=== PATIENT | female | born 1945 | race Caucasian/White ===

== ENCOUNTER 2024-12-23 13:16 | Outpatient (AMB) | payer MEDICARE, SELFPAY ==
[2024-12-23 13:46] VITALS: BP 126/64; PULSE 61; BMI 27.0
--- NOTE | 2024-12-23 13:46 | MHC.OFFVIS ---
Vital Signs 12/23/24 13:46 Height 5 ft 1 in Weight 142 lb 13.753 oz BMI 27.0 BP 126/64 Blood Pressure Location Lt brachial Position Sitting Pulse 61 Pulse Source Monitor Intake Visit Reasons: dr salazar referral bradycardia Lead Ramp Service Man Required: No Accompanied by: Self / Same As Patient Allergies Penicillins Allergy (Unknown, Verified 12/23/24 13:57) rash Medication List - Last Reconciled 12/23/24 by Shahid Rowell MD atorvastatin (Lipitor) 40 mg PO DAILY calcium carbonate 260 mg PO DAILY cholecalciferol (vitamin D3) 10 mcg PO DAILY cyanocobalamin (vitamin B-12) (Vitamin B-12) 50 mcg PO DAILY esomeprazole magnesium 20 mg PO DAILY losartan 25 mg PO DAILY HPI Comments Details: Tana is here for cardiac consultation. Few months back, it seems that she had an ER visit for lower extremity swelling. In that instance, she had ultrasound which was negative for DVT but there was mentioned of pulsatile flow in the common femoral vein raising the question of cardiac dysfunction. Following this, she was seen at [facility] recommended echocardiogram although they felt low likelihood of cardiac dysfunction causing leg swelling. She still feels a nonspecific discomfort in the lower extremities and more so in the upper part of the shins and bones. The swelling itself seems quite well controlled and it seems she has seen vascular surgery as well. From the cardiac standpoint, no known cardiac issues like coronary disease or myocardial infarction or cardiomyopathy. She does not have any active symptoms like shortness of breath or anginal sounding chest pains. Main complaint is rather fatigue and difficulty in sleeping. [facility] Surgical History (Updated 12/23/24 @ 13:54 by Lucio Camacho CNA) S/P sclerotherapy of varicose veins Family History (Updated 12/23/24 @ 14:16 by Lucio Camacho CNA) Father Heart problem Mother No problems noted. Social History (Updated 12/23/24 @ 14:18 by Lucio Camacho CNA) Alcohol intake: current Alcohol intake frequency: other Alcohol type: wine Patient Tobacco Use Status: Former Tobacco user Review of Systems Const Denies chills, Denies daytime sleepiness, Denies fatigue, Denies fever(s), Denies poor appetite, Denies snoring, Denies stops breathing during sleep, Denies weight gain and Denies weight loss Eyes Denies loss of vision ENT Reports dizziness Card Denies chest pain, Reports rapid heart rate, Reports claudication, Denies leg edema, Reports lightheadedness, Reports palpitations, Reports dyspnea, Reports dyspnea on exertion and Denies orthopnea Resp Denies cough, Denies excessive phlegm production, Denies pain with cough, Reports dyspnea, Reports dyspnea on exertion, Denies snoring, Denies wheezing and Denies other GI Denies abdominal pain, Denies hematochezia, Denies change in bowel habits, Denies nausea and Denies vomiting Denies urinary frequency and Denies dysuria Musc Denies arthralgias and Denies muscle weakness Skin/Breast Denies nail changes and Denies rash Neuro Reports dizziness, Denies loss of vision and Denies memory loss Psych Denies depression, Reports difficulty concentrating, Denies auditory hallucinations and Denies memory loss Endo Denies fatigue and Reports palpitations Chepe/Lymph Denies easy bruising Aller/Immun Denies wheezing Physical Exam Vital Signs: Last Vital Signs Pulse 61 12/23/24 13:46 BP 126/64 12/23/24 13:46 BMI result Body Mass Index 27.0 Const General: comfortable and no acute distress Orientation/consciousness: patient oriented x3 HEENT Other: Unremarkable Head: Yes normal to inspection Neck Neck: Yes normal visual inspection Chest Chest palpation & inspection: normal inspection of the chest Resp Auscultation: clear to auscultation bilaterally Cardio Palpation: normal PMI Heart sounds: S1 normal heart sound present, S2 normal heart sound present, no gallops, no murmurs and no rubs GI Palpation (GI): Soft to palpation Back/Spine/Pelvis Other: unremarkable Skin General skin exam: no rashes or lesions noted Neuro General: patient oriented x3 Extrem General: Yes normal to inspection Psych Mental Status: mental status grossly normal Office Procedures EKG Details: EKG with underlying sinus rhythm at 61/Min; no ischemic changes; [place] [id number], Complete Assessment & Plan Assessment & Plan (1) Leg swelling: Code(s): M79.89 - Other specified soft tissue disorders Category: Medical (2) Fatigue: Code(s): R53.83 - Other fatigue Category: Medical (3) Sleep disorder: Code(s): G47.9 - Sleep disorder, unspecified Category: Medical Plan Clinically, there was no evidence of congestive heart failure. NT pro BNP is also within range. There was no suggestion of tricuspid regurgitation on clinical exam. Overall, the leg swelling is most likely related to venous insufficiency or not cardiac in nature. To clarify this further, we will get an echocardiogram. Otherwise, because of concerns of fatigue and difficulties sleep, we will refer her for a formal consultation with sleep Medicine. Follow up in 3 months. Orders: Orders CA echo transthoracic complete Today M79.89 - Other specified soft tissue disorders Referrals Sleep Medicine Referral G47.9 - Sleep disorder, unspecified Coding Level of Care Code New Pt Level 3 (36042) Diagnoses Leg swelling M79.89 Fatigue R53.83 Sleep disorder G47.9 CPT Codes EKG - CPT: 84502-[id number], Complete ([id number])
== END 2024-12-23 14:42 | disposition home or self-care (01) ==
LOC: HO.HCS 13:17
PROVIDERS: PCP Internal Medicine; Visit Provider Internal Medicine
DX: M79.89 Other specified soft tissue disorders (principal); R53.83 Other fatigue; G47.9 Sleep disorder, unspecified
CPT/HCPCS: 93010; 99203

== ENCOUNTER → 2024-12-23 13:16 | Outpatient (BNVA) | payer MEDICARE, SELFPAY | PROVIDERS: PCP Internal Medicine; Visit Provider Internal Medicine | DX: R60.0 Localized edema (principal); R53.83 Other fatigue; G47.9 Sleep disorder, unspecified; M79.89 Other specified soft tissue disorders | CPT/HCPCS: 93005; 99202 ==